=== PATIENT | female | born 1965 | race Native Hawaiian/Other Pacific Islander ===

== ENCOUNTER 2018-08-22 07:20 | Outpatient (CLI) | payer OTHER | END 2018-08-22 07:21 | disposition home or self-care (01) | LOC: PET-BROA 07:20 | DX: C50.911 Malignant neoplasm of unspecified site of right female breast (principal); Z17.1 Estrogen receptor negative status [ER-]; R16.0 Hepatomegaly, not elsewhere classified; K76.0 Fatty (change of) liver, not elsewhere classified; N20.0 Calculus of kidney; E04.9 Nontoxic goiter, unspecified; Z90.11 Acquired absence of right breast and nipple ==